=== PATIENT | male | born 2000 | race Caucasian/White ===

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

== ENCOUNTER → 2021-01-25 | Outpatient (REF) | payer OTHER ==
[2021-01-25 20:37] LABS: GC DNA AMPLIFICATION NEGATIVE (NEGATIVE)
== END ==
LOC: M LAB REF 17:21
PROVIDERS: ATTEND Pediatrics
DX: Z00.121 Encounter for routine child health examination with abnormal findings (principal)

== ENCOUNTER 2022-02-04 16:53 | Emergency (ER) | payer OTHER ==
[~2022-02-04] VITALS: Ht 182.9 cm; Wt 79.5 kg
[2022-02-04 16:53] VITALS: BP 138/66
[2022-02-04] MEDS ORDERED: LIDOCAINE 2% MDV 20ML VIAL SC ONE (18:50)
== END 2022-02-04 19:58 | disposition home or self-care (01) ==
LOC: M ED 16:53
DX: S61.012A Laceration without foreign body of left thumb without damage to nail, initial encounter (principal); W26.0XXA Contact with knife, initial encounter; Y92.009 Unspecified place in unspecified non-institutional (private) residence as the place of occurrence of the external cause